=== PATIENT | male | born 1990 | race Caucasian/White ===

== ENCOUNTER 2021-06-21 07:10 | Emergency (ER) | payer OTHER ==
[2021-06-21 07:23] VITALS: BP 144/122; PULSE 94; RESP 18; TEMP 98
--- NOTE | 2021-06-21 09:34 | ED ---
Psych HPI - General Chief Complaint: Psychiatric Symptoms Stated Complaint: Overdose Time Seen by Provider: 06/21/21 07:14 Source: patient, EMS, RN notes reviewed Mode of arrival: EMS Limitations: no limitations - History of Present Illness Initial Comments: This a 31-year-old male presents emergency from chief complaint of wanting help for amphetamine abuse. Patient states that he's been on Adderall for several years states that he's been abusing states he'll see her prescription and just a few days. Patient states he is asymptomatic denies palpitation chest pain shortness of breath nausea vomiting diarrhea constipation. Patient states he just wants help from recovering from this abuse. Patient denies any drug abuse no other alcohol abuse - Related Data Home Medications Medication Instructions Recorded Confirmed ALPRAZolam [Xanax] 0.25 mg PO DAILY PRN 06/21/21 06/21/21 Dextroamphetamine/Amphetamine 40 mg PO QAM 06/21/21 06/21/21 [Adderall Xr] Allergies Allergy/AdvReac Type Severity Reaction Status Date / Time No Known Allergies Allergy Verified 06/21/21 07:56 Review of Systems ROS Statement: Those systems with pertinent positive or pertinent negative responses have been documented in the HPI. ROS Other: All systems not noted in ROS Statement are negative. Past Medical History Past Medical History: No Reported History History of Any Multi-Drug Resistant Organisms: None Reported Past Surgical History: No Surgical Hx Reported Past Psychological History: ADD/ADHD Smoking Status: Never smoker Past Alcohol Use History: None Reported Past Drug Use History: Prescription Drug Abuse General Exam Limitations: no limitations General appearance: alert, in no apparent distress Head exam: Present: atraumatic, normocephalic, normal inspection Eye exam: Present: normal appearance, PERRL, EOMI. Absent: scleral icterus, conjunctival injection, periorbital swelling ENT exam: Present: normal exam, normal oropharynx, mucous membranes moist Neck exam: Present: normal inspection, full ROM. Absent: tenderness, meningismus, lymphadenopathy Respiratory exam: Present: normal lung sounds bilaterally. Absent: respiratory distress, wheezes, rales, rhonchi, stridor Cardiovascular Exam: Present: regular rate, normal rhythm, normal heart sounds. Absent: systolic murmur, diastolic murmur, rubs, gallop, clicks Neurological exam: Present: alert, oriented X3 Psychiatric exam: Present: normal affect, normal mood Course Vital Signs 06/21/21 07:20 Temperature 98 F Pulse Rate 94 Respiratory 18 Rate Blood Pressure 144/122 O2 Sat by Pulse 97 Oximetry Medical Decision Making - Medical Decision Making Patient was evaluated by EPS case discussed with psychiatrist, patient is currently open with a sponsor, recovery counseling. Patient will be discharged in stable condition return parameters were discussed. Disposition Clinical Impression: Amphetamine abuse Disposition: HOME SELF-CARE Condition: Stable Additional Instructions: Please return to the Emergency Department if symptoms worsen or any other concerns. Is patient prescribed a controlled substance at d/c from ED?: No Referrals: Tamra Floyd MD [Primary Care Provider] - 1-2 days Time of Disposition: 09:33
== END 2021-06-21 09:58 | disposition home or self-care (01) ==
LOC: EC 07:10
DX: F15.20 Other stimulant dependence, uncomplicated (principal); F90.9 Attention-deficit hyperactivity disorder, unspecified type
CPT/HCPCS: 82075; 99284

== ENCOUNTER 2022-01-11 23:02 | Emergency (ER) | payer OTHER ==
[2022-01-11 23:25] VITALS: TEMP 98.7
[2022-01-12] MEDS ORDERED: SODIUM CHLORIDE 0.9% 1,000 ML IV STA (00:27)
--- NOTE | 2022-01-12 00:29 | ED ---
Overdose HPI - General Chief Complaint: Overdose Stated Complaint: drug abuse Time Seen by Provider: 01/11/22 23:29 Source: patient, family, RN notes reviewed Mode of arrival: ambulatory Limitations: no limitations - History of Present Illness Initial Comments: Patient is a 31-year-old male presenting to the emergency room with concerns regarding overdose of Adipex-P. He reports taking approximately 13 tablets in the last 48 hours of 37-1/2 mg phentolamine tablets. He states that he was taking the medications as an upper to to a history of prescription drug abuse with out the intent of overdose. He is complaining of a generalized unwell feeling along with paranoia and delusions of grandeur. He denies any auditory or visual hallucinations. He denies any suicidal or homicidal ideations. He has no significant past medical history with the exception of his mental health illness of ADHD and prescription drug abuse. - Related Data Home Medications Medication Instructions Recorded Confirmed ALPRAZolam [Xanax] 0.25 mg PO DAILY PRN 06/21/21 06/21/21 Dextroamphetamine/Amphetamine 40 mg PO QAM 06/21/21 06/21/21 [Adderall Xr] Allergies Allergy/AdvReac Type Severity Reaction Status Date / Time No Known Allergies Allergy Verified 01/11/22 23:20 Review of Systems ROS Statement: Those systems with pertinent positive or pertinent negative responses have been documented in the HPI. ROS Other: All systems not noted in ROS Statement are negative. Past Medical History Past Medical History: No Reported History History of Any Multi-Drug Resistant Organisms: None Reported Past Surgical History: No Surgical Hx Reported Past Psychological History: ADD/ADHD Smoking Status: Never smoker Past Alcohol Use History: None Reported Past Drug Use History: Prescription Drug Abuse General Exam Limitations: no limitations General appearance: alert, in no apparent distress Head exam: Present: atraumatic, normocephalic, normal inspection Eye exam: Present: normal appearance, PERRL, EOMI. Absent: scleral icterus, conjunctival injection, periorbital swelling ENT exam: Present: normal exam, mucous membranes moist Neck exam: Present: normal inspection. Absent: tenderness, meningismus, lymphadenopathy Respiratory exam: Present: normal lung sounds bilaterally. Absent: respiratory distress, wheezes, rales, rhonchi, stridor Cardiovascular Exam: Present: normal rhythm, tachycardia (Mild), normal heart sounds. Absent: systolic murmur, diastolic murmur, rubs, gallop, clicks GI/Abdominal exam: Present: soft, normal bowel sounds. Absent: distended, tenderness, guarding, rebound, rigid Extremities exam: Present: normal inspection, full ROM, normal capillary refill. Absent: tenderness, pedal edema, joint swelling, calf tenderness Back exam: Present: normal inspection Neurological exam: Present: alert, oriented X3, CN II-XII intact Expanded Focused psych exam: Present: paranoid Skin exam: Present: warm, dry, intact, normal color. Absent: rash Course Vital Signs 01/11/22 01/12/22 01/12/22 23:20 01:17 02:20 Temperature 98.7 F Pulse Rate 115 H 112 H 99 Pulse Rate [ 112 H [employer] Duty [employer] ] Respiratory 20 18 Rate Blood Pressure 149/82 156/112 149/107 O2 Sat by Pulse 98 Oximetry Medical Decision Making - Medical Decision Making 31-year-old male presenting to the emergency room with intentional excessive intake of amphetamines. Due to overdose poison control called and advised no specific treatment protocols or need for reversal agents for further follow-up with poison control. Will check EKG, CBC, troponin, CK and CBC. We'll give IV fluid bolus and monitor symptoms. EKG shows mild sinus tachycardia, labs with slightly elevated liver enzymes and elevated bilirubin. Mild leukocytosis. Still with paranoid delusions after IV fluid bolus will give IV Ativan and monitor response. Improvement in paranoid and blood pressure after IV Ativan. Will discharge home. Long discussion with patient regarding risks of continued phentermine abuse including and not limited to . Will discharge home. Case discussed with Dr. Bonilla. - Lab Data Result diagrams: 01/12/22 01:10 01/12/22 01:10 Lab Results 01/12/22 01/12/22 01/12/22 Range/Units 01:10 01:10 01:10 WBC 11.0 H (3.8-10.6) k/uL RBC 5.89 (4.30-5.90) m/uL Hgb 16.8 (13.0-17.5) gm/dL Hct 49.0 (39.0-53.0) % MCV 83.2 (80.0-100.0) fL MCH 28.5 (25.0-35.0) pg MCHC 34.2 (31.0-37.0) g/dL RDW 12.7 (11.5-15.5) % Plt Count 279 (150-450) k/uL MPV 8.3 Neutrophils % 73 % Lymphocytes % 19 % Monocytes % 6 % Eosinophils % 2 % Basophils % 0 % Neutrophils # 8.0 H (1.3-7.7) k/uL Lymphocytes # 2.1 (1.0-4.8) k/uL Monocytes # 0.6 (0-1.0) k/uL Eosinophils # 0.2 (0-0.7) k/uL Basophils # 0.0 (0-0.2) k/uL Sodium 138 (137-145) mmol/L Potassium 3.7 (3.5-5.1) mmol/L Chloride 96 L (98-107) mmol/L Carbon Dioxide 21 L (22-30) mmol/L Anion Gap 21 mmol/L BUN 13 (9-20) mg/dL Creatinine 0.92 (0.66-1.25) mg/dL Est GFR (CKD-EPI)AfAm >90 (>60 ml/min/1.73 sqM) Est GFR (CKD-EPI)NonAf >90 (>60 ml/min/1.73 sqM) Glucose 98 (74-99) mg/dL Calcium 10.1 (8.4-10.2) mg/dL Total Bilirubin 1.4 H (0.2-1.3) mg/dL AST 87 H (17-59) U/L ALT 151 H (4-49) U/L Alkaline Phosphatase 86 (38-126) U/L CK-MB (CK-2) (0.0-2.4) ng/mL Troponin I <0.012 (0.000-0.034) ng/mL Total Protein 7.9 (6.3-8.2) g/dL Albumin 5.4 H (3.5-5.0) g/dL Salicylates <1.0 mg/dL Acetaminophen <10.0 ug/mL Serum Alcohol <10 mg/dL 01/12/22 Range/Units 01:10 WBC (3.8-10.6) k/uL RBC (4.30-5.90) m/uL Hgb (13.0-17.5) gm/dL Hct (39.0-53.0) % MCV (80.0-100.0) fL MCH (25.0-35.0) pg MCHC (31.0-37.0) g/dL RDW (11.5-15.5) % Plt Count (150-450) k/uL MPV Neutrophils % % Lymphocytes % % Monocytes % % Eosinophils % % Basophils % % Neutrophils # (1.3-7.7) k/uL Lymphocytes # (1.0-4.8) k/uL Monocytes # (0-1.0) k/uL Eosinophils # (0-0.7) k/uL Basophils # (0-0.2) k/uL Sodium (137-145) mmol/L Potassium (3.5-5.1) mmol/L Chloride (98-107) mmol/L Carbon Dioxide (22-30) mmol/L Anion Gap mmol/L BUN (9-20) mg/dL Creatinine (0.66-1.25) mg/dL Est GFR (CKD-EPI)AfAm (>60 ml/min/1.73 sqM) Est GFR (CKD-EPI)NonAf (>60 ml/min/1.73 sqM) Glucose (74-99) mg/dL Calcium (8.4-10.2) mg/dL Total Bilirubin (0.2-1.3) mg/dL AST (17-59) U/L ALT (4-49) U/L Alkaline Phosphatase (38-126) U/L CK-MB (CK-2) 13.3 H (0.0-2.4) ng/mL Troponin I (0.000-0.034) ng/mL Total Protein (6.3-8.2) g/dL Albumin (3.5-5.0) g/dL Salicylates mg/dL Acetaminophen ug/mL Serum Alcohol mg/dL - EKG Data EKG Comments: Sinus tachycardia, ventricular rate 108 bpm, FL interval 120 ms, QRS duration 84 ms, QT/QTC 341/404 ms, PRT axes 18, 60, -5 Disposition Clinical Impression: Accidental drug overdose, Amphetamine abuse Disposition: HOME SELF-CARE Condition: Stable Instructions (If sedation given, give patient instructions): Adult Overdose (ED), Methamphetamine Abuse (ED) Additional Instructions: Please follow-up with your primary care provider. Please continue to abstain from prescription and illicit drug abuse. Avoid caffeinated products and stay well hydrated. Please return to the Emergency Department if symptoms worsen or any other concerns. Is patient prescribed a controlled substance at d/c from ED?: No Referrals: Tamra Floyd MD [Primary Care Provider] - 1-2 days Time of Disposition: 03:18
[2022-01-12 01:18] VITALS: RESP 18
[2022-01-12 01:24] LABS: Basophils % (A) 0 %; Eosinophils # (A) 0.2 k/uL (0-0.7); Eosinophils % (A) 2 %; HGB 16.8 gm/dL (13.0-17.5); Lymphocytes # (A) 2.1 k/uL (1.0-4.8); Lymphocytes % (A) 19 %; MCH 28.5 pg (25.0-35.0); MCHC 34.2 g/dL (31.0-37.0); MCV 83.2 fL (80.0-100.0); Mean Platelet Volume 8.3; Monocytes # (A) 0.6 k/uL (0-1.0); Monocytes % (A) 6 %; Neutrophils % (A) 73 %; Platelet Count 279 k/uL (150-450); RBC 5.89 m/uL (4.30-5.90); RDW 12.7 % (11.5-15.5)
[2022-01-12 01:41] LABS: Anion Gap 21 mmol/L; Blood Urea Nitrogen 13 mg/dL (9-20); Carbon Dioxide 21 mmol/L (22-30); Chloride 96 mmol/L (98-107); Glucose 98 mg/dL (74-99); Potassium 3.7 mmol/L (3.5-5.1); Sodium 138 mmol/L (137-145)
[2022-01-12 01:42] LABS: ALT 151 U/L (4-49); AST 87 U/L (17-59); Acetaminophen <10.0 ug/mL; African American GFR (CKD) >90 (>60 ml/min/1.73 sqM); Albumin 5.4 g/dL (3.5-5.0); Alcohol <10 mg/dL; Alkaline Phosphatase 86 U/L (38-126); Calcium 10.1 mg/dL (8.4-10.2); Non-African American GFR(CKD) >90 (>60 ml/min/1.73 sqM); Salicylate <1.0 mg/dL; Total Bilirubin 1.4 mg/dL (0.2-1.3); Total Protein 7.9 g/dL (6.3-8.2)
[2022-01-12] MEDS ORDERED: LORazepam 2 MG/ML INJ IV STA (02:10)
[2022-01-12 03:26] VITALS: BP 145/114; PULSE 107
== END 2022-01-12 03:26 | disposition home or self-care (01) ==
LOC: EC 23:02
DX: T46.7X1A Poisoning by peripheral vasodilators, accidental (unintentional), initial encounter (principal); F15.10 Other stimulant abuse, uncomplicated; R00.0 Tachycardia, unspecified
CPT/HCPCS: 36415; 93005; 80053; 82553; 84484; 85025; 80143; 80179; 99284; 96374; 96361; G0480; J2060; 80320

== ENCOUNTER 2022-02-27 17:30 | Emergency (ER) | payer OTHER ==
--- NOTE | 2022-02-27 17:52 | ED ---
Overdose HPI - General Chief Complaint: Overdose Stated Complaint: overdose Time Seen by Provider: 02/27/22 17:50 Source: patient, EMS Mode of arrival: EMS Limitations: no limitations - History of Present Illness Initial Comments: 32-year-old male presents to emergency department with overdose. Reports to me that he took 13 tablets of Adderall in the past 48 hours. Reports that he is now hallucinating. States that he is seeing flashes of black. Admits that he has an addiction and is going to rehab on Friday. Denies that he uses the medications because he is depressed for attempting to harm himself. Denies use or abuse of any other drugs. No alcohol use. Last dose of Adderall was taken 4 hours ago. He has had no nausea or vomiting. No other alleviating, precipitating or modifying factors - Related Data Home Medications Medication Instructions Recorded Confirmed ALPRAZolam [Xanax] 0.5 mg PO DAILY PRN 02/27/22 02/27/22 Atomoxetine HCl 80 mg PO DAILY 02/27/22 02/27/22 Divalproex ER [Depakote ER] 250 mg PO DAILY 02/27/22 02/27/22 Liraglutide [Saxenda] 3 mg SQ DAILY 02/27/22 02/27/22 buPROPion XL [Wellbutrin XL] 150 mg PO DAILY 02/27/22 02/27/22 cloNIDine HCL [Catapres] 0.1 mg PO BID 02/27/22 02/27/22 Allergies Allergy/AdvReac Type Severity Reaction Status Date / Time No Known Allergies Allergy Verified 02/27/22 20:14 Review of Systems ROS Statement: Those systems with pertinent positive or pertinent negative responses have been documented in the HPI. ROS Other: All systems not noted in ROS Statement are negative. Past Medical History Past Medical History: No Reported History History of Any Multi-Drug Resistant Organisms: None Reported Past Surgical History: No Surgical Hx Reported Past Psychological History: ADD/ADHD, Anxiety Smoking Status: Never smoker Past Alcohol Use History: None Reported Past Drug Use History: Marijuana, Prescription Drug Abuse General Exam Limitations: no limitations General appearance: alert, in no apparent distress Head exam: Present: atraumatic, normocephalic, normal inspection Eye exam: Present: normal appearance, PERRL, EOMI. Absent: scleral icterus, conjunctival injection, periorbital swelling ENT exam: Present: normal exam, mucous membranes moist Neck exam: Present: normal inspection. Absent: tenderness, meningismus, lymphadenopathy Respiratory exam: Present: normal lung sounds bilaterally. Absent: respiratory distress, wheezes, rales, rhonchi, stridor Cardiovascular Exam: Present: regular rate, normal rhythm, normal heart sounds. Absent: systolic murmur, diastolic murmur, rubs, gallop, clicks GI/Abdominal exam: Present: soft, normal bowel sounds. Absent: distended, tenderness, guarding, rebound, rigid Extremities exam: Present: normal inspection, full ROM, normal capillary refill. Absent: tenderness, pedal edema, joint swelling, calf tenderness Back exam: Present: normal inspection Neurological exam: Present: alert, oriented X3, CN II-XII intact Psychiatric exam: Present: normal affect, normal mood Skin exam: Present: warm, dry, intact, normal color. Absent: rash Course Vital Signs 02/27/22 02/27/22 17:35 20:59 Pulse Rate 93 88 Respiratory 20 18 Rate Blood Pressure 157/90 140/86 O2 Sat by Pulse 98 97 Oximetry Medical Decision Making - Medical Decision Making Arrival patient's placed into room 19. Thorough history and physical exam was performed. IV access is established. He is given a liter bolus of normal saline. Laboratory studies were conducted and reviewed. He is positive for methamphetamines. He is positive for benzos however he was given 1 mg of Ativan in the emergency department. Called and spoke with urgent care. States that the patient can be discharged home when comfortable. Patient reevaluated and reports to improve symptoms. Feels comfortable for discharge at this time. He is instructed to follow-up at rehab on Friday. Return for new or worsening symptoms. Patient discharged home in stable condition - Lab Data Result diagrams: 02/27/22 18:52 02/27/22 18:52 Lab Results 02/27/22 02/27/22 02/27/22 Range/Units 18:52 18:52 20:08 WBC 10.0 (3.8-10.6) k/uL RBC 5.19 (4.30-5.90) m/uL Hgb 15.3 (13.0-17.5) gm/dL Hct 43.4 (39.0-53.0) % MCV 83.7 (80.0-100.0) fL MCH 29.4 (25.0-35.0) pg MCHC 35.2 (31.0-37.0) g/dL RDW 12.1 (11.5-15.5) % Plt Count 285 (150-450) k/uL MPV 8.3 Neutrophils % 65 % Lymphocytes % 24 % Monocytes % 6 % Eosinophils % 3 % Basophils % 1 % Neutrophils # 6.5 (1.3-7.7) k/uL Lymphocytes # 2.4 (1.0-4.8) k/uL Monocytes # 0.6 (0-1.0) k/uL Eosinophils # 0.3 (0-0.7) k/uL Basophils # 0.1 (0-0.2) k/uL Sodium 139 (137-145) mmol/L Potassium 3.9 (3.5-5.1) mmol/L Chloride 103 (98-107) mmol/L Carbon Dioxide 28 (22-30) mmol/L Anion Gap 8 mmol/L BUN 13 (9-20) mg/dL Creatinine 0.85 (0.66-1.25) mg/dL Est GFR (CKD-EPI)AfAm >90 (>60 ml/min/1.73 sqM) Est GFR (CKD-EPI)NonAf >90 (>60 ml/min/1.73 sqM) Glucose 104 H (74-99) mg/dL Calcium 9.1 (8.4-10.2) mg/dL Total Bilirubin 0.5 (0.2-1.3) mg/dL AST 50 (17-59) U/L ALT 91 H (4-49) U/L Alkaline Phosphatase 85 (38-126) U/L Total Protein 6.8 (6.3-8.2) g/dL Albumin 4.6 (3.5-5.0) g/dL Salicylates <1.0 mg/dL Urine Opiates Screen Not Detected (NotDetected) Ur Oxycodone Screen Not Detected (NotDetected) Urine Methadone Screen Not Detected (NotDetected) Ur Propoxyphene Screen Not Detected (NotDetected) Acetaminophen <10.0 ug/mL Ur Barbiturates Screen Not Detected (NotDetected) U Tricyclic Antidepress Not Detected (NotDetected) Ur Phencyclidine Scrn Not Detected (NotDetected) Ur Amphetamines Screen Detected H (NotDetected) U Methamphetamines Scrn Detected H (NotDetected) U Benzodiazepines Scrn Detected H (NotDetected) Urine Cocaine Screen Not Detected (NotDetected) U Marijuana (THC) Screen Not Detected (NotDetected) Serum Alcohol <10 mg/dL - EKG Data EKG Comments: EKG demonstrates a normal sinus rhythm with a rate of 80. MS interval 145. QRS 91. QTC of 418. No acute ST segment elevations or depressions. EKG is interpreted by myself Disposition Clinical Impression: Amphetamine abuse, continuous Disposition: HOME SELF-CARE Condition: Stable Instructions (If sedation given, give patient instructions): Acute Delirium (ED ) Additional Instructions: Please stop abusing the adderall Follow-up on Friday for your rehab. Return to the emergency room should you have any new or worsening symptoms Is patient prescribed a controlled substance at d/c from ED?: No Referrals: Tamra Floyd MD [Primary Care Provider] - 1-2 days Time of Disposition: 20:31
[2022-02-27] MEDS ORDERED: SODIUM CHLORIDE 0.9% 1,000 ML IV ONE (18:09)
[2022-02-27 19:27] LABS: Basophils # (A) 0.1 k/uL (0-0.2); Basophils % (A) 1 %; Eosinophils # (A) 0.3 k/uL (0-0.7); Eosinophils % (A) 3 %; HCT 43.4 % (39.0-53.0); HGB 15.3 gm/dL (13.0-17.5); Lymphocytes # (A) 2.4 k/uL (1.0-4.8); Lymphocytes % (A) 24 %; MCH 29.4 pg (25.0-35.0); MCHC 35.2 g/dL (31.0-37.0); MCV 83.7 fL (80.0-100.0); Mean Platelet Volume 8.3; Monocytes # (A) 0.6 k/uL (0-1.0); Monocytes % (A) 6 %; Neutrophils # (A) 6.5 k/uL (1.3-7.7); Neutrophils % (A) 65 %; Platelet Count 285 k/uL (150-450); RBC 5.19 m/uL (4.30-5.90); RDW 12.1 % (11.5-15.5)
[2022-02-27 19:36] LABS: ALT 91 U/L (4-49); AST 50 U/L (17-59); Acetaminophen <10.0 ug/mL; African American GFR (CKD) >90 (>60 ml/min/1.73 sqM); Albumin 4.6 g/dL (3.5-5.0); Alcohol <10 mg/dL; Alkaline Phosphatase 85 U/L (38-126); Anion Gap 8 mmol/L; Blood Urea Nitrogen 13 mg/dL (9-20); Calcium 9.1 mg/dL (8.4-10.2); Carbon Dioxide 28 mmol/L (22-30); Chloride 103 mmol/L (98-107); Glucose 104 mg/dL (74-99); Non-African American GFR(CKD) >90 (>60 ml/min/1.73 sqM); Potassium 3.9 mmol/L (3.5-5.1); Salicylate <1.0 mg/dL; Sodium 139 mmol/L (137-145); Total Bilirubin 0.5 mg/dL (0.2-1.3); Total Protein 6.8 g/dL (6.3-8.2)
[2022-02-27] MEDS ORDERED: LORazepam 2 MG/ML INJ IV STA (20:09)
[2022-02-27 21:00] VITALS: BP 140/86; PULSE 88; RESP 18
[2022-02-27 21:53] LABS: Amphetamine Screen,Urine Detected (NotDetected); Barbiturate Screen,Urine Not Detected (NotDetected); Benzodiazepines Screen,Urine Detected (NotDetected); Cocaine Screen,Urine Not Detected (NotDetected); Methadone Screen, Urine Not Detected (NotDetected); Opiate Screen,Urine Not Detected (NotDetected); Oxycodone Screen, Urine Not Detected (NotDetected); Phencyclidine Screen,Urine Not Detected (NotDetected); Tricyclic Antidepressant,Urine Not Detected (NotDetected); Urn Cannabinoid Scrn Not Detected (NotDetected)
== END 2022-02-27 21:01 | disposition home or self-care (01) ==
LOC: EC 17:30
DX: F15.19 Other stimulant abuse with unspecified stimulant-induced disorder (principal); F12.90 Cannabis use, unspecified, uncomplicated; F41.9 Anxiety disorder, unspecified
CPT/HCPCS: 36415; 93005; 80053; 85025; 80306; 80143; 80179; 99285; 96374; 96361 ×2; G0480; J2060; 80320

== ENCOUNTER 2022-07-21 11:34 | Emergency (ER) | payer OTHER ==
--- NOTE | 2022-07-21 12:48 | ED ---
General Adult HPI - General Chief complaint: Psychiatric Symptoms Stated complaint: Insomnia Time Seen by Provider: 07/21/22 11:40 Source: patient, RN notes reviewed, old records reviewed Mode of arrival: ambulatory Limitations: no limitations - History of Present Illness Initial comments: This is a 32-year-old male who presents emergency Department because he made some suicidal comments online. Patient states she did do this patient seeking attention is not really suicidal. Mother states he constantly saying this and he has not acted out. Patient also abuses stimulants. Patient currently has been prescribed Provigil and he states he took about 15 pills over the last 2-3 days per patient states the last time he took those approximate 6 hours ago. Patient states he feels extremely tired but he is not having any pain he doesn't feel any chest pressure he denies any chest pain he denies any difficulty breathing or shortness of breath. Patient denies any palpitation. Patient denies any recent fever chills or cough. Patient denies any other drug use. Patient denies any abdominal pain patient's nausea vomiting diarrhea. Patient states she would like to go get help but his mother states that he always says as he never actually goes and gets any help. - Related Data Home Medications Medication Instructions Recorded Confirmed ALPRAZolam [Xanax] 0.5 mg PO DAILY 02/27/22 06/01/22 buPROPion XL [Wellbutrin XL] 150 mg PO DAILY 02/27/22 06/01/22 modafiniL [Provigil] 100 mg PO DAILY 06/01/22 06/01/22 Allergies Allergy/AdvReac Type Severity Reaction Status Date / Time No Known Allergies Allergy Verified 07/21/22 11:40 Review of Systems ROS Statement: Those systems with pertinent positive or pertinent negative responses have been documented in the HPI. ROS Other: All systems not noted in ROS Statement are negative. Past Medical History Past Medical History: No Reported History History of Any Multi-Drug Resistant Organisms: None Reported Past Surgical History: No Surgical Hx Reported Past Psychological History: ADD/ADHD, Anxiety, Schizoaffective Disorder Smoking Status: Never smoker Past Alcohol Use History: None Reported Past Drug Use History: Marijuana, Prescription Drug Abuse General Exam - General Exam Comments Initial Comments: GENERAL: Patient is well-developed and well-nourished. Patient is nontoxic and well-hy drated and is in mild distress. ENT: Neck is soft and supple. No significant lymphadenopathy is noted. Oropharynx is clear. Moist mucous membranes. Neck has full range of motion without eliciting any pain. EYES: The sclera were anicteric and conjunctiva were pink and moist. Extraocular movements were intact and pupils were equal round and reactive to light. Eyelids were unremarkable. PULMONARY: Unlabored respirations. Good breath sounds bilaterally. No audible rales rhonchi or wheezing was noted. CARDIOVASCULAR: There is a regular rate and rhythm without any murmurs gallops or rubs. ABDOMEN: Soft and nontender with normal bowel sounds. SKIN: Skin is clear with no lesions or rashes and otherwise unremarkable. NEUROLOGIC: Patient is alert and oriented x3. Cranial nerves II through XII are grossly intact. Motor and sensory are also intact. Normal speech, volume and content. Symmetrical smile. MUSCULOSKELETAL: Normal extremities with adequate strength and full range of motion. LYMPHATICS: No significant lymphadenopathy is noted PSYCHIATRIC: Normal psychiatric evaluation. Limitations: no limitations Course Vital Signs 07/21/22 11:37 Temperature 98.8 F Pulse Rate 117 H Respiratory 16 Rate Blood Pressure 154/91 O2 Sat by Pulse 96 Oximetry Medical Decision Making - Medical Decision Making EKG is interpreted by myself. EKG shows sinus tachycardia at 102 bpm [place] interval is on a 45 QRSs 89 QT interval 345 QTC is [address] segment elevation or depression Was pt. sent in by a medical professional or institution (, PA, [employer], urgent care, hospital, or long-term...) When possible be specific @ -Spoke with Dr. Obregon she is physician sent the patient into the emergency department Did you speak to anyone other than the patient for history (EMS, parent, family, police, friend...)? What history was obtained from this source @ -Spoke with the mother about some of the patient's history Did you review nursing and triage notes (agree or disagree)? Why? @ -I reviewed and agree with nursing and triage notes Were old charts reviewed (outside hosp., previous admission, EMS record, old EKG, old radiological studies, urgent care reports/EKG's, long-term records)? Report findings @ -No old charts were reviewed Differential Diagnosis (chest pain, altered mental status, abdominal pain women, abdominal pain men, vaginal bleeding, weakness, fever, dyspnea, syncope, headache, dizziness, GI bleed, back pain, seizure, CVA, palpatations, mental health, musculoskeletal)? @ -Differential Mental Health Depression, anxiety, bipolar, psychosis, schizophrenia, borderline personality, situational depression, adjustment disorder, behavioral disorder, brain tumor, malingering, substance abuse, encephalopathy, medication reaction, dementia, hypothyroidism, degenerative neurologic disorder, lupus.... This is not meant to be all-inclusive list EKG interpreted by me (3pts min.). @ -As above X-rays interpreted by me (1pt min.). @ -None done CT interpreted by me (1pt min.). @ -None done U/S interpreted by me (1pt. min.). @ -None done What testing was considered but not performed or refused? (CT, X-rays, U/S, labs)? Why? @ -None What meds were considered but not given or refused? Why? @ -None Did you discuss the management of the patient with other professionals (professionals i.e. , PA, [employer], lab, RT, psych nurse, high school social studies teacher, hose cementer, teacher, commissioned police officer, window caser)? Give summary @ -EPS nurse came down and evaluated the patient Was smoking cessation discussed for >3mins.? @ -No Was critical care preformed (if so, how long)? @ -No Were there social determinants of health that impacted care today? How? (Homelessness, low income, unemployed, alcoholism, drug addiction, transportation, low edu. Level, literacy, decrease access to med. care, assisted, rehab)? @ -No Was there de-escalation of care discussed even if they declined (Discuss DNR or withdrawal of care, Hospice)? DNR status @ -No What co-morbidities impacted this encounter? (DM, HTN, Smoking, COPD, CAD, Cancer, CVA, ARF, Chemo, Hep., AIDS, mental health diagnosis, sleep apnea, morbid obesity)? @ -None Was patient admitted / discharged? Hospital course, mention meds given and route, prescriptions, significant lab abnormalities, going to OR and other pertinent info. @ -Patient was evaluated by psych nurse and she consulted with the psychiatrist they determined that the patient would be safe going home I was in agreement with this patient was given a safety plan to be discharged home Undiagnosed new problem with uncertain prognosis? @ -No Drug Therapy requiring intensive monitoring for toxicity (Heparin, Nitro, Insulin, Cardizem)? @ -No Were any procedures done? @ -No Diagnosis/symptom? @ -Stimulant abuse Acute, or Chronic, or Acute on Chronic? @ -Acute on chronic Uncomplicated (without systemic symptoms) or Complicated (systemic symptoms)? @ -Complicated Side effects of treatment? @ -No Exacerbation, Progression, or Severe Exacerbation? @ -No Poses a threat to life or bodily function? How? (Chest pain, [place], [place], pneumonia, PE, COPD, DKA, ARF, appy, cholecystitis, CVA, Diverticulitis, Homicidal, Suicidal, threat to staff... and all critical care pts) @ -No Diagnosis/symptom? @ -Situational depression Acute, or Chronic, or Acute on Chronic? @ -Acute Uncomplicated (without systemic symptoms) or Complicated (systemic symptoms)? @ -Complicated Side effects of treatment? @ -none Exacerbation, Progression, or Severe Exacerbation] @ -no Poses a threat to life or bodily function? @ -no Disposition Clinical Impression: Situational depression, Stimulant abuse Disposition: HOME SELF-CARE Condition: Good Instructions (If sedation given, give patient instructions): Depression (ED), Polysubstance Abuse (ED) Is patient prescribed a controlled substance at d/c from ED?: No Referrals: Tamra Floyd MD [Primary Care Provider] - 1-2 days Time of Disposition: 14:06
[2022-07-21 14:16] VITALS: BP 148/97; PULSE 98; RESP 18; TEMP 98.4
[2022-07-21 14:22] LABS: Amphetamine Screen,Urine Not Detected (NotDetected); Barbiturate Screen,Urine Not Detected (NotDetected); Benzodiazepines Screen,Urine Detected (NotDetected); Cocaine Screen,Urine Not Detected (NotDetected); Methadone Screen, Urine Not Detected (NotDetected); Opiate Screen,Urine Not Detected (NotDetected); Oxycodone Screen, Urine Not Detected (NotDetected); Phencyclidine Screen,Urine Not Detected (NotDetected); Tricyclic Antidepressant,Urine Not Detected (NotDetected); Urn Cannabinoid Scrn Not Detected (NotDetected)
== END 2022-07-21 14:16 | disposition home or self-care (01) ==
LOC: EC 11:34
DX: F43.23 Adjustment disorder with mixed anxiety and depressed mood (principal); F15.10 Other stimulant abuse, uncomplicated; F12.90 Cannabis use, unspecified, uncomplicated
CPT/HCPCS: 80306; 82075; 93005; 99285

== ENCOUNTER 2023-10-29 10:40 | Emergency (ER) | payer OTHER ==
[2023-10-29 10:53] VITALS: BP 134/82; PULSE 122; RESP 20; TEMP 98.6
--- NOTE | 2023-10-29 11:01 | ED ---
General Adult HPI - General Chief complaint: Recheck/Abnormal Lab/Rx Stated complaint: mental health Time Seen by Provider: 10/29/23 10:53 Source: patient, police, RN notes reviewed Mode of arrival: ambulatory Limitations: no limitations - History of Present Illness Initial comments: 33-year-old male presents emergency department with police after argument with his family. Patient states that he was in an argument there was no physical altercation. He states that police took him out of the house and brought him here by police without petition patient denies being suicidal homicidal denies any threats states he does have psychiatric issues in which she is on medications for. He states that he has follow-up with his psychiatrist. He denies any chest pain palpitation shortness of breath nausea vomiting. - Related Data Home Medications Medication Instructions Recorded Confirmed ALPRAZolam [Xanax] 0.5 mg PO DAILY 02/27/22 06/01/22 buPROPion XL [Wellbutrin XL] 150 mg PO DAILY 02/27/22 06/01/22 modafiniL [Provigil] 100 mg PO DAILY 06/01/22 06/01/22 Allergies Allergy/AdvReac Type Severity Reaction Status Date / Time No Known Allergies Allergy Verified 10/29/23 10:53 Review of Systems ROS Statement: Those systems with pertinent positive or pertinent negative responses have been documented in the HPI. ROS Other: All systems not noted in ROS Statement are negative. Past Medical History Past Medical History: No Reported History History of Any Multi-Drug Resistant Organisms: None Reported Past Surgical History: No Surgical Hx Reported Past Psychological History: ADD/ADHD, Anxiety, Schizoaffective Disorder Smoking Status: Never smoker Past Alcohol Use History: None Reported Past Drug Use History: Marijuana, Prescription Drug Abuse General Exam Limitations: no limitations General appearance: alert, in no apparent distress Head exam: Present: atraumatic, normocephalic, normal inspection Eye exam: Present: normal appearance, PERRL, EOMI. Absent: scleral icterus, conjunctival injection, periorbital swelling ENT exam: Present: normal exam, normal oropharynx, mucous membranes moist Neck exam: Present: normal inspection. Absent: tenderness, meningismus, lymphadenopathy Respiratory exam: Present: normal lung sounds bilaterally. Absent: respiratory distress, wheezes, rales, rhonchi, stridor Cardiovascular Exam: Present: regular rate (Heart rate in the 90s on exam), normal rhythm, normal heart sounds. Absent: systolic murmur, diastolic murmur, rubs, gallop, clicks GI/Abdominal exam: Present: soft, normal bowel sounds. Absent: distended, tenderness, guarding, rebound, rigid Neurological exam: Present: alert, oriented X3 Skin exam: Present: warm, dry, intact, normal color. Absent: rash Course Vital Signs 10/29/23 10:50 Temperature 98.6 F Pulse Rate 122 H Respiratory 20 Rate Blood Pressure 134/82 O2 Sat by Pulse 99 Oximetry Medical Decision Making - Medical Decision Making Was pt. sent in by a medical professional or institution (, PA, [employer] TECHNICIAN, urgent care, hospital, or halfway...) When possible be specific @ -No Did you speak to anyone other than the patient for history (EMS, parent, family, police, friend...)? What history was obtained from this source @ -No Did you review nursing and triage notes (agree or disagree)? Why? @ -I reviewed and agree with nursing and triage notes Were old charts reviewed (outside hosp., previous admission, EMS record, old EKG, old radiological studies, urgent care reports/EKG's, halfway records)? Report findings @ -No old charts were reviewed Differential Diagnosis (chest pain, altered mental status, abdominal pain women, abdominal pain men, vaginal bleeding, weakness, fever, dyspnea, syncope, headache, dizziness, GI bleed, back pain, seizure, CVA, palpatations, mental health, musculoskeletal)? @ -Differential Mental Health Depression, anxiety, bipolar, psychosis, schizophrenia, borderline personality, situational depression, adjustment disorder, behavioral disorder, brain tumor, malingering, substance abuse, encephalopathy, medication reaction, dementia, hypothyroidism, degenerative neurologic disorder, lupus.... This is not meant to be all-inclusive list EKG interpreted by me (3pts min.). @ -None X-rays interpreted by me (1pt min.). @ -None done CT interpreted by me (1pt min.). @ -None done U/S interpreted by me (1pt. min.). @ -None done What testing was considered but not performed or refused? (CT, X-rays, U/S, labs)? Why? @ -None What meds were considered but not given or refused? Why? @ -None Did you discuss the management of the patient with other professionals (professionals i.e. , PA, [employer] TECHNICIAN, lab, RT, psych nurse, social sciences department chair, camera operator, teacher, sailing officer, case assistant)? Give summary @ -No Was smoking cessation discussed for >3mins.? @ -No Was critical care preformed (if so, how long)? @ -No Were there social determinants of health that impacted care today? How? (Homelessness, low income, unemployed, alcoholism, drug addiction, transportation, low edu. Level, literacy, decrease access to med. care, retirement, rehab)? @ -No Was there de-escalation of care discussed even if they declined (Discuss DNR or withdrawal of care, Hospice)? DNR status @ -No What co-morbidities impacted this encounter? (DM, HTN, Smoking, COPD, CAD, Cancer, CVA, ARF, Chemo, Hep., AIDS, mental health diagnosis, sleep apnea, morbid obesity)? @ -None Was patient admitted / discharged? Hospital course, mention meds given and route, prescriptions, significant lab abnormalities, going to OR and other pertinent info. @ -Discharge patient brought here after argument with family. There is no physical altercation he has no complaints denies being suicidal homicidal there is no petition. I did offer psychiatric evaluation patient declines. He states that he does have follow-up he is not suicidal or homicidal and is taking his medications. Patient does not want to be here. Undiagnosed new problem with uncertain prognosis? @ -No Drug Therapy requiring intensive monitoring for toxicity (Heparin, Nitro, Insulin, Cardizem)? @ -No Were any procedures done? @ -No Diagnosis/symptom? @ -Adjustment reaction Acute, or Chronic, or Acute on Chronic? @ -Acute Uncomplicated (without systemic symptoms) or Complicated (systemic symptoms)? @ -Uncomplicated Side effects of treatment? @ -No Exacerbation, Progression, or Severe Exacerbation? @ -No Poses a threat to life or bodily function? How? (Chest pain, [place], [place], pneumonia, PE, COPD, DKA, ARF, appy, cholecystitis, CVA, Diverticulitis, Homicidal, Suicidal, threat to staff... and all critical care pts) @ -No Disposition Clinical Impression: Adjustment reaction Disposition: HOME SELF-CARE Condition: Stable Additional Instructions: Please return to the Emergency Department if symptoms worsen or any other concerns. Is patient prescribed a controlled substance at d/c from ED?: No Referrals: Tamra Floyd MD [Primary Care Provider] - 1-2 days Time of Disposition: 11:00
== END 2023-10-29 11:14 | disposition home or self-care (01) ==
LOC: EC 10:40
DX: F43.20 Adjustment disorder, unspecified (principal)
CPT/HCPCS: 99284

== ENCOUNTER → 2023-12-23 | Outpatient (CLI) | payer OTHER ==
[2023-12-23 15:08] LABS: HCT 47.4 % (39.6-50.0); HGB 16.6 g/dL (13.0-17.0); MCH 28.9 pg (27.0-32.0); MCV 82.6 FL (80.0-97.0); Mean Platelet Volume 10.4 FL (9.5-12.2); NRBC Per 100 WBC 0 X 10*3/uL (0.00-0.01); Platelet Count 402 X 10*3/uL (140-440); RBC 5.74 X 10*6/uL (4.40-5.60); RDW 12.1 % (11.5-14.5); WBC 12.53 X 10*3/uL (4.50-10.00)
[2023-12-23 16:04] LABS: ALT 89 U/L (10-49); AST 43 U/L (14-35); Albumin 5.2 g/dL (3.8-4.9); Albumin/Globulin Ratio 1.93 Ratio (1.60-3.17); Alkaline Phosphatase 91 U/L (41-126); Blood Urea Nitrogen 13.5 mg/dL (9.0-27.0); Calcium 10.3 mg/dL (8.7-10.3); Carbon Dioxide 24.3 mmol/L (21.6-31.8); Chloride 98 mmol/L (96-109); Chol/HDL Ratio 3.86 Ratio; Globulin 2.7 g/dL (1.6-3.3); Glucose 94 mg/dL (70-110); LDL Cholesterol,Calculated 109.9 mg/dL (0.0-131.0); Potassium 3.8 mmol/L (3.5-5.5); Prostate Specific Antigen 0.74 ng/mL (0.000-2.500); Sodium 140 mmol/L (135-145); Total Bilirubin 0.9 mg/dL (0.3-1.2); Total Protein 7.9 g/dL (6.2-8.2)
[2023-12-23 16:25] LABS: Follicle Stimulating Hormone 1.2 mIU/mL; Luteinizing Hormone 3.3 mIU/mL
== END | disposition home or self-care (01) ==
LOC: LABWHC1 08:28
PROVIDERS: ATTEND Internal Medicine Endocrinology, Diabetes & Metabolism
DX: E29.9 Testicular dysfunction, unspecified (principal)
CPT/HCPCS: 36415; 80053; 80061; 82306; 83001; 83002; 83036; 84146; 84153; 84270; 84402; 84403; 84439; 84443; 84480; 85027